=== PATIENT | female | born 1945 | race Caucasian/White ===

== ENCOUNTER → 2016-07-25 | Outpatient (CLI) | payer MEDICARE, OTHER ==
[2016-07-25 13:06] LABS: Basophils % (A) 0 %; CH 32.4; Eosinophils # (A) 0.2 k/uL (0-0.7); Eosinophils % (A) 2 %; HCT 39.9 % (34.0-46.0); HDW 2.91; HGB 13.1 gm/dL (11.4-16.0); Luc % (Auto) 3; Lymphocytes # (A) 1.7 k/uL (1.0-4.8); Lymphocytes % (A) 28 %; MCH 31.4 pg (25.0-35.0); MCHC 32.9 g/dL (31.0-37.0); MCV 95.6 fL (80.0-100.0); Mean Platelet Volume 7.1; Monocytes # (A) 0.3 k/uL (0-1.0); Monocytes % (A) 5 %; Neutrophils # (A) 3.7 k/uL (1.3-7.7); Neutrophils % (A) 61 %; RBC 4.18 m/uL (3.80-5.40); RDW 13.7 % (11.5-15.5); WBC 6.1 k/uL (3.8-10.6); WBC (Perox) 6.51
[2016-07-25 13:27] LABS: ALT 48 U/L (9-52); AST 29 U/L (14-36); Alkaline Phosphatase 152 U/L (38-126); Anion Gap 14 mmol/L; Blood Urea Nitrogen 22 mg/dL (7-17); Calcium 9.7 mg/dL (8.4-10.2); Carbon Dioxide 24 mmol/L (22-30); Chloride 103 mmol/L (98-107); Glucose 267 mg/dL (74-99); Non-African American GFR(MDRD) >60 (>60 ml/min/1.73 sqM); Potassium 3.9 mmol/L (3.5-5.1); Sodium 141 mmol/L (137-145); Total Bilirubin 0.5 mg/dL (0.2-1.3); Total Protein 7.7 g/dL (6.3-8.2)
[2016-07-25 19:07] LABS: Hemoglobin A1C 8.1 % (4.2-6.1)
== END | disposition home or self-care (01) ==
LOC: LABPAT 12:42
PROVIDERS: ATTEND Surgery
DX: Z01.812 Encounter for preprocedural laboratory examination (principal)
CPT/HCPCS: 80053; 83036; 85025

== ENCOUNTER 2016-08-01 05:48 | Inpatient (IN) | payer MEDICARE, OTHER ==
[~2016-08-01 05:48] MED LIST: ceFAZolin 2 GM in SODIUM CHLORIDE 0.9% 100 ML IVPB ONE
[2016-08-01] MEDS ORDERED: DEXAMETHASONE SOD PHOSPHATE 10 MG/ML 1 ML VIAL IV ONE (05:53)
[2016-08-01] MEDS ORDERED: ONDANSETRON 4 MG/2 ML VIAL IVP ONE (05:53)
[2016-08-01] MEDS ORDERED: LACTATED RINGERS 1,000 ML IV SCH (05:53)
[2016-08-01] MEDS ORDERED: LIDOCAINE 1% 20 ML VIAL (10MG/ML) FOR IV START INTRADERMA PRN (05:53)
[2016-08-01] MEDS ORDERED: SCOPOLAMINE 1.5MG/72HR PATCH TRANSDERM ONE (05:53)
[2016-08-01 06:46] LABS: Glucose,Whole Blood 173 mg/dL (75-99)
[2016-08-01] MEDS ORDERED: MIDAZOLAM 2 MG/2 ML VIAL IV ONE (06:59)
--- NOTE | 2016-08-01 08:03 | P.GSHP ---
History of Present Illness H&P Date: 08/01/16 Chief Complaint: Morbid obesity This a 70-year-old female who's had lifetime problems obesity. Patient recently had her LAP-BAND removed for gastric prolapse/dysphagia and GERD. She presents today for laparoscopic sleeve gastrectomy. Her BMI is 41. Patient reversed surgery including bleeding, infection. She is also aware the risk of gastric staple line disruption, scarring, bleeding. - Constitutional Constitutional: Reports as per HPI Past Medical History Past Medical History: Asthma, Diabetes Mellitus, GERD/Reflux, Hyperlipidemia, Hypertension, Liver Disease, Osteoarthritis (OA), Sleep Apnea/CPAP/BIPAP, Thyroid Disorder Additional Past Medical History / Comment(s): Hiatal Hernia. Hx. Hepatitis. Anemia. Hx FREQ UTI's, TAKES PROPHYL PO AB RX-no problems currently, USES CPAP. History of Any Multi-Drug Resistant Organisms: None Reported Past Surgical History: Back Surgery, Bariatric Surgery, Breast Surgery, Cholecystectomy, Hysterectomy, Orthopedic Surgery, Tonsillectomy, Tubal Ligation Additional Past Surgical History / Comment(s): Lap Band, 2007. Tylor carpal tunnel, breast biopsy, D&C's, uvula removed, trigger finger tylor middle fingers, rt cataract, left ankle surgery, EGD 04/06/16 Past Anesthesia/Blood Transfusion Reactions: Motion Sickness Past Psychological History: No Psychological Hx Reported Smoking Status: Former smoker Past Alcohol Use History: Rare Additional Past Alcohol Use History / Comment(s): quit smoking 1989, started 1969, smoked 1-1and1/2ppd Past Drug Use History: None Reported - Past Family History Father Family Medical History: Cancer Brother(s) Family Medical History: Cancer Medications and Allergies Home Medications Medication Instructions Recorded Confirmed Type Calcium Carbonate [Calcium] 600 mg PO BID 06/16/15 08/01/16 History Cholecalciferol [Vitamin D3] 1,000 unit PO DAILY 06/16/15 08/01/16 History Ferrous Sulfate [Feosol] 650 mg PO DAILY 06/16/15 08/01/16 History Glimepiride [Amaryl] 4 mg PO BID 06/16/15 08/01/16 History Indapamide [Lozol] 2.5 mg PO QAM 06/16/15 08/01/16 History Irbesartan [Avapro] 150 mg PO QAM 06/16/15 08/01/16 History Levothyroxine Sodium [Synthroid] 137 mcg PO QAM 06/16/15 08/01/16 History Magnesium Gluconate [Magonate] 250 mg PO DAILY 06/16/15 08/01/16 History Montelukast Sodium [Singulair] 10 mg PO HS 06/16/15 08/01/16 History Multivitamins, Thera [Theragran] 1 each PO DAILY 06/16/15 08/01/16 History Omeprazole [PriLOSEC] 20 mg PO HS 06/16/15 08/01/16 History Potassium Chloride [Klor-Con 10] 10 meq PO DAILY 06/16/15 08/01/16 History Sertraline [Zoloft] 50 mg PO QAM 06/16/15 08/01/16 History azaTHIOprine [Imuran] 50 mg PO DAILY 06/16/15 08/01/16 History metFORMIN HCL 1,000 mg PO BID 06/16/15 08/01/16 History metFORMIN HCL [Glucophage] 500 mg PO W/SUPPER 06/16/15 08/01/16 History Nitrofurantoin Macrocrystal 100 mg PO HS PRN 03/28/16 08/01/16 History [Macrodantin] Cyanocobalamin [Vitamin B-12] 1,000 mcg PO DAILY 05/03/16 08/01/16 History Krill/Om-3/Dha/Epa/Phospho/Ast 1 each PO DAILY 05/03/16 08/01/16 History [[place]-3 Krill Oil 300 mg Sfgl] Allergies Allergy/AdvReac Type Severity Reaction Status Date / Time Sulfa (Sulfonamide Allergy Rash/Hives Verified 08/01/16 06:20 Antibiotics) Surgical - Exam Vital Signs Temp Pulse Resp BP Pulse Ox 98.3 F 107 H 16 115/52 97 08/01/16 06:10 08/01/16 06:10 08/01/16 06:10 08/01/16 06:10 08/01/16 06:10 BMI is 41 - General well developed, no distress - Eyes PERRL - ENT normal pinna - Neck no masses - Respiratory normal expansion - Cardiovascular Rhythm: regular - Abdomen Abdomen: soft, non tender Results - Labs Abnormal Lab Results - Last 24 Hours (Table) 08/01/16 Range/Units 06:30 POC Glucose (mg/dL) 173 H (75-99) mg/dL Assessment and Plan Plan: Morbid obesity. We'll perform laparoscopic sleeve gastrectomy.
[2016-08-01] MEDS ORDERED: HEPARIN SODIUM,PORCINE 5,000 UNIT/ML 1 ML VIAL SQ ONE (08:07)
[2016-08-01] MEDS ORDERED: fentaNYL (PF) 50 MCG/ML 2 ML AMP ONE (08:09)
[2016-08-01] MEDS ORDERED: PROPOFOL 10 MG/ML 20 ML VIAL IV ONE (08:09)
[2016-08-01] MEDS ORDERED: NEOSTIGMINE 1 MG/ML 10 ML VIAL ONE (08:09)
[2016-08-01] MEDS ORDERED: LIDOCAINE 1% INJ 10MG/ML (20 ML MDV) ONE (08:09)
[2016-08-01] MEDS ORDERED: ePHEDrine 50 MG/ML 1 ML AMP ONE (08:09)
[2016-08-01] MEDS ORDERED: MIDAZOLAM 2 MG/2 ML VIAL ONE (08:09)
[2016-08-01] MEDS ORDERED: GLYCOPYRROLATE 0.2 MG/ML 2 ML VIAL ONE (08:09)
[2016-08-01] MEDS ORDERED: SUCCINYLCHOLINE CHLORIDE VIAL 200 MG/10 ML VIAL IV ONE (08:09)
[2016-08-01] MEDS ORDERED: ROCURONIUM BROMIDE 10 MG/ML 10 ML VIAL IV ONE (08:09)
[2016-08-01] MEDS ORDERED: ONDANSETRON 4 MG/2 ML VIAL ONE (08:09)
[2016-08-01] MEDS ORDERED: BUPIVACAIN-EPI 0.25%-1:200,000 30 ML VIAL SQ ONE (08:37)
[2016-08-01] MEDS ORDERED: METHYLENE BLUE 10 MG/ML 1 ML VIAL MISCELLANE ONE (08:37)
[2016-08-01] MEDS ORDERED: LACTATED RINGERS 1,000 ML IV ONE (09:52)
[2016-08-01] MEDS ORDERED: NALOXONE 0.4 MG/ML 1 ML VIAL IV PRN (10:04)
--- NOTE | 2016-08-01 10:04 | P.OP ---
Date of Procedure: 08/01/16 Preoperative Diagnosis: Morbid obesity Postoperative Diagnosis: Morbid obesity Procedure(s) Performed: Laparoscopic sleeve gastrectomy Anesthesia: MAC Surgeon: Santos Yancey Pathology: other (Stomach) Condition: stable Disposition: PACU Description of Procedure: The patient was placed on the operating room table in the supine position. She received general anesthesia and then was placed in dorsal lithotomy position. Her abdomen was prepped and draped in sterile fashion. The skin incision sites were anesthetized 1% local Xylocaine. And then the skin was incised with an 11 blade in the left lateral position. Using a blade less trocar under direct visualization the peritoneal cavity was entered. The abdomen was insufflated and then a 5 mm laparoscope was placed into the peritoneal cavity. A 5 mm trocar was placed in the right epigastric, and right lateral position. A 15 mm trocar was placed in the supra-umbilical position and another 5 mm trocar was placed in the left lateral position. The left lateral lobe of the liver was retracted. The stomach was visualized. The greater curvature of the stomach was then dissected using the Harmonic scissors. The dissection occurred approximately 5 cm from the pylorus to the level of the left anisha. There was no hiatal hernia seen. At this point a 40-Kinyarwanda bougie dilator was placed the oropharynx and passed into the esophagus and into the stomach by the POLICY VALUE CALCULATOR. The sleeve gastrectomy was performed by using the powered echelon stapler with a seam guard buttress material. Sequential firings of the stapler were performed. The gastric remnant was then brought out through the 15 mm trocar site. The dilator was withdrawn. And a orogastric tube was replaced into the stomach. The stomach was insufflated with 200 mL of methylene blue normal saline. There was no evidence of extravasation. The abdomen was irrigated there is no bleeding seen. The Juma-Rosana device was used to close the 15 mm trocar with 0 Vicryl. Skin was closed with interrupted 3-0 Monocryl sutures once the trochars withdrawn. Dermabond dressing was applied. Patient was sent to recovery in stable condition.
[2016-08-01] MEDS: HYDROmorphone 1 MG/ML 1 ML SYRINGE IVP PRN ×5 (10:35→16:57)
[2016-08-01 10:57] LABS: Glucose,Whole Blood 317 mg/dL (75-99)
[2016-08-01] MEDS ORDERED: INSULIN LISPRO (humaLOG) 300 UNIT/3 ML VIAL SQ ONE (10:57)
[2016-08-01 11:59] VITALS: BMI 40.4
[2016-08-01] MEDS: ALBUTEROL NEBULIZED 2.5 MG/3 ML INHALATION SCH ×3 (12:03→19:19)
[2016-08-01] MEDS: AMPICILLIN-SULBACTAM 3 GM in SODIUM CHLORIDE 0.9% 100 ML IVPB SCH ×2 (12:34→16:58)
[2016-08-01] MEDS: 0.9% NACL WITH KCL 20 MEQ/L 1,000 ML IV SCH ×2 (12:35→19:48)
--- NOTE | 2016-08-01 12:35 | P.CONS ---
History of Present Illness - Reason for Consult Consult date: 08/01/16 Medical management - Chief Complaint Gastric sleeve - History of Present Illness Patient seen and examined covering for Dr. Diogenes Spain. This is a 70-year-old female who presented to the hospital for gastric sleeve. The patient has morbid obesity and has a history of a lap band which was removed. The patient states she has a history of hypertension, dyslipidemia, obstructive sleep apnea. She is a former smoker and quit 30 years ago. She states she has no history of COPD or asthma or issues with her breathing. Her only complaints right now are a dry mouth and pain. Review of Systems All systems: negative Past Medical History Past Medical History: Diabetes Mellitus, GERD/Reflux, Hyperlipidemia, Hypertension, Liver Disease, Osteoarthritis (OA), Sleep Apnea/CPAP/BIPAP, Thyroid Disorder Additional Past Medical History / Comment(s): Hiatal Hernia. Hx. Hepatitis. Anemia. Hx FREQ UTI's, TAKES PROPHYL PO AB RX-no problems currently, USES CPAP. History of Any Multi-Drug Resistant Organisms: None Reported Past Surgical History: Back Surgery, Bariatric Surgery, Breast Surgery, Cholecystectomy, Hysterectomy, Orthopedic Surgery, Tonsillectomy, Tubal Ligation Additional Past Surgical History / Comment(s): Lap Band, 2007. Tylor carpal tunnel, breast biopsy, D&C's, uvula removed, trigger finger tylor middle fingers, rt cataract, left ankle surgery, EGD 04/06/16 Past Anesthesia/Blood Transfusion Reactions: Motion Sickness Past Psychological History: No Psychological Hx Reported Smoking Status: Former smoker Past Alcohol Use History: Rare Additional Past Alcohol Use History / Comment(s): quit smoking 1989, started 1969, smoked 1-1and1/2ppd Past Drug Use History: None Reported - Past Family History Father Family Medical History: Cancer Brother(s) Family Medical History: Cancer Medications and Allergies Home Medications Medication Instructions Recorded Confirmed Type Calcium Carbonate [Calcium] 600 mg PO BID 06/16/15 08/01/16 History Cholecalciferol [Vitamin D3] 1,000 unit PO DAILY 06/16/15 08/01/16 History Ferrous Sulfate [Feosol] 650 mg PO DAILY 06/16/15 08/01/16 History Glimepiride [Amaryl] 4 mg PO BID 06/16/15 08/01/16 History Indapamide [Lozol] 2.5 mg PO QAM 06/16/15 08/01/16 History Irbesartan [Avapro] 150 mg PO QAM 06/16/15 08/01/16 History Levothyroxine Sodium [Synthroid] 137 mcg PO QAM 06/16/15 08/01/16 History Magnesium Gluconate [Magonate] 250 mg PO DAILY 06/16/15 08/01/16 History Montelukast Sodium [Singulair] 10 mg PO HS 06/16/15 08/01/16 History Multivitamins, Thera [Theragran] 1 each PO DAILY 06/16/15 08/01/16 History Omeprazole [PriLOSEC] 20 mg PO HS 06/16/15 08/01/16 History Potassium Chloride [Klor-Con 10] 10 meq PO DAILY 06/16/15 08/01/16 History Sertraline [Zoloft] 50 mg PO QAM 06/16/15 08/01/16 History azaTHIOprine [Imuran] 50 mg PO DAILY 06/16/15 08/01/16 History metFORMIN HCL 1,000 mg PO BID 06/16/15 08/01/16 History metFORMIN HCL [Glucophage] 500 mg PO W/SUPPER 06/16/15 08/01/16 History Nitrofurantoin Macrocrystal 100 mg PO HS PRN 03/28/16 08/01/16 History [Macrodantin] Cyanocobalamin [Vitamin B-12] 1,000 mcg PO DAILY 05/03/16 08/01/16 History Krill/Om-3/Dha/Epa/Phospho/Ast 1 each PO DAILY 05/03/16 08/01/16 History [[place]-3 Krill Oil 300 mg Sfgl] Allergies Allergy/AdvReac Type Severity Reaction Status Date / Time Sulfa (Sulfonamide Allergy Rash/Hives Verified 08/01/16 06:20 Antibiotics) Physical Exam Osteopathic Statement: *. No significant issues noted on an osteopathic structural exam other than those noted in the History and Physical/Consult. Vitals: Vital Signs Temp Pulse Pulse Resp BP Pulse Ox 08/01/16 12:04 95 92 L 08/01/16 11:01 97 18 121/57 96 08/01/16 10:46 95 18 117/59 96 08/01/16 10:31 93 18 132/68 95 01/16/17 10:16 96 18 131/61 95 08/01/16 10:01 98.4 F 106 H 18 142/63 96 08/01/16 06:37 98.3 F 107 H 16 115/52 97 08/01/16 06:10 98.3 F 107 H 16 115/52 97 Intake and Output 07/31/16 08/01/16 08/01/16 22:59 06:59 14:59 Intake Total 300 1300 Output Total 40 Balance 300 1260 Intake: IV 300 1300 Output: Estimated Blood Loss 40 Other: Weight 103.6 kg Patient Weight 08/02/16 06:59 Weight 103.6 kg Gen.: Patient is alert and oriented 3, no acute distress, morbidly obese Cardiovascular: Regular rate and rhythm, S1/S2 Lungs: Diminished at the bases otherwise clear Abdomen: Soft, mildly diffusely tender to palpation, positive bowel sounds Extremities: No edema Results Labs: Abnormal Lab Results - Last 24 Hours (Table) 08/01/16 08/01/16 Range/Units 06:30 10:54 POC Glucose (mg/dL) 173 H 317 H (75-99) mg/dL Assessment and Plan Plan: Morbid obesity Diabetes mellitus type 2 Hypertension Dyslipidemia Obstructive sleep apnea utilizing CPAP Status post gastric sleeve O2 to maintain saturation greater than equal to 88% Patient to use her CPAP from home nightly and with naps Accu-Cheks every 6 hours with sliding scale while nothing by mouth Pain control Resume patient's home medications once cleared by surgery for oral intake Incentive spirometry and pulmonary hygiene As needed bronchodilators GI and DVT prophylaxis. Lovenox, will add Pepcid IV fluid hydration
[2016-08-01] MEDS: INSULIN LISPRO (humaLOG) 300 UNIT/3 ML VIAL SQ SCH ×2 (12:39→17:02)
[2016-08-01] MEDS ORDERED: ONDANSETRON 4 MG/2 ML VIAL IVP PRN (14:33)
[2016-08-01] MEDS: FAMOTIDINE 20 MG/2 ML VIAL IV SCH (14:53)
[2016-08-01 16:59] LABS: Glucose,Whole Blood 320 mg/dL (75-99)
[2016-08-01 20:01] LABS: Glucose,Whole Blood 297 mg/dL (75-99)
[2016-08-02] MEDS: INSULIN LISPRO (humaLOG) 300 UNIT/3 ML VIAL SQ SCH ×4 (00:25→18:12)
[2016-08-02 00:26] LABS: Glucose,Whole Blood 268 mg/dL (75-99)
[2016-08-02] MEDS: HYDROmorphone 1 MG/ML 1 ML SYRINGE IVP PRN ×6 (00:32→19:35)
[2016-08-02] MEDS: 0.9% NACL WITH KCL 20 MEQ/L 1,000 ML IV SCH ×4 (01:46→21:24)
[2016-08-02 06:00] LABS: Glucose,Whole Blood 188 mg/dL (75-99)
[2016-08-02 07:40] LABS: Basophils % (A) 0 %; CH 32.2; CHCM 34.1; Eosinophils % (A) 1 %; HCT 32.1 % (34.0-46.0); HDW 2.84; HGB 10.8 gm/dL (11.4-16.0); Luc # (Auto) 0.14; Luc % (Auto) 2; Lymphocytes # (A) 0.8 k/uL (1.0-4.8); Lymphocytes % (A) 12 %; MCHC 33.7 g/dL (31.0-37.0); MCV 94.8 fL (80.0-100.0); Monocytes # (A) 0.4 k/uL (0-1.0); Monocytes % (A) 5 %; Neutrophils # (A) 5.4 k/uL (1.3-7.7); Neutrophils % (A) 80 %; RBC 3.39 m/uL (3.80-5.40); RDW 13.7 % (11.5-15.5); WBC 6.7 k/uL (3.8-10.6); WBC (Perox) 7.05
[2016-08-02 08:02] LABS: Anion Gap 8 mmol/L; Blood Urea Nitrogen 18 mg/dL (7-17); Carbon Dioxide 26 mmol/L (22-30); Chloride 108 mmol/L (98-107); Magnesium 1.5 mg/dL (1.6-2.3); Non-African American GFR(MDRD) >60 (>60 ml/min/1.73 sqM); Phosphorous 3.2 mg/dL (2.5-4.5); Potassium 4.1 mmol/L (3.5-5.1); Sodium 142 mmol/L (137-145)
[2016-08-02] MEDS ORDERED: Magnesium Replacement Protocol 1 EACH MISC MISCELLANE PRN (08:35)
[2016-08-02] MEDS: MAGNESIUM SULFATE-D5W PMX 1 GM in DEXTROSE/WATER 1 100ML.BAG IVPB SCH ×2 (09:03→11:05)
[2016-08-02] MEDS: ALBUTEROL NEBULIZED 2.5 MG/3 ML INHALATION SCH ×4 (09:03→19:10)
[2016-08-02] MEDS: ENOXAPARIN 40 MG/0.4 ML SYRINGE SQ SCH ×2 (09:04→21:20)
[2016-08-02] MEDS: FAMOTIDINE 20 MG/2 ML VIAL IV SCH (09:04)
[2016-08-02 09:20] LABS: Hemoglobin A1C 8.2 % (4.2-6.1)
--- NOTE | 2016-08-02 09:33 | FL ---
EXAMINATION TYPE: FL UGI DATE OF EXAM: 08/02/2016 8:56 AM COMPARISON: NONE HISTORY: Gastric sleeve TECHNIQUE: A single/double contrast UGI study is performed. FINDINGS: No free air is under the diaphragms. Single contrast evaluation through the gastric sleeve is performed. There is moderate hesitancy passing through the gastroesophageal junction into the barbi shahriar sleeve. No extravasation is evident. The gastric sleeve appears open without persistent stenosis. Contrast extends into the duodenum. Note is made of a slight pouch within the proximal residual stom ach. IMPRESSION: 1. Normal post gastric sleeve upper GI.
[2016-08-02 11:38] LABS: Glucose,Whole Blood 176 mg/dL (75-99)
[2016-08-02 15:16] VITALS: RESP 16
--- NOTE | 2016-08-02 15:21 | P.DS ---
Providers Date of admission: 08/01/16 05:48 Expected date of discharge: 08/02/16 Attending physician: Santos Yancey Consults: 08/01/16 10:04 Consult Physician Routine Consulting Provider: Diogenes Spain Reason/Comments: Medical management Do you want consulting provider notified?: Yes Primary care physician: Stated None Hospital Course: Patient is a 70-year-old female with medical history significant for morbid obesity and LAP-BAND surgery, since removed for gastric prolapse, dysphasia and GERD. Patient presented to the hospital for elective laparoscopic sleeve gastrectomy on 08/01/[address] Yancey. Patient tolerated procedure well. GI series on 08/02/2016 with no evidence of extravasation or obstruction. Patient had an uneventful postoperative course. No complaints of dysphagia. Tolerating a clear liquid diet. Laparoscopic surgical incisions dry and intact, no erythema and drainage. Patient was deemed stable for discharge with follow-up in the outpatient setting. Discharge diagnoses: Morbid obesity status post laparoscopic gastric sleeve gastrectomy. BMI 40.5. The above impression and plan have been discussed and directed by Dr. Yancey. Melani ARANDA acting as scribe for Dr. Yancey. Pertinent Studies: Upper GI series Procedures: Laparoscopic sleeve gastrectomy Patient Condition at Discharge: Good Plan - Discharge Summary New Discharge Prescriptions: HYDROcodone/APAP 7.5-325MG [[place] 7.5-325] 1 tab PO Q6HR PRN #28 tab PRN Reason: Pain Omeprazole [PriLOSEC] 40 mg PO DAILY #30 capsule. Ondansetron Odt [Zofran ODT] 8 mg PO Q8HR #20 tab Sucralfate [Carafate] 1 gm PO ACHS #90 tablet Discharge Medication List Calcium Carbonate [Calcium] 600 mg PO BID 06/16/15 [History] Cholecalciferol [Vitamin D3] 1,000 unit PO DAILY 06/16/15 [History] Ferrous Sulfate [Iron (65 MG Elemental)] 650 mg PO DAILY 06/16/15 [History] Glimepiride [Amaryl] 4 mg PO BID 06/16/15 [History] Indapamide [Lozol] 2.5 mg PO QAM 06/16/15 [History] Irbesartan [Avapro] 150 mg PO QAM 06/16/15 [History] Levothyroxine Sodium [Synthroid] 137 mcg PO QAM 06/16/15 [History] Magnesium Gluconate [Magonate] 250 mg PO DAILY 06/16/15 [History] Montelukast Sodium [Singulair] 10 mg PO HS 06/16/15 [History] Multivitamins, Thera [Multivitamin] 1 tab PO DAILY 06/16/15 [History] Omeprazole [PriLOSEC] 20 mg PO HS 06/16/15 [History] Potassium Chloride [Klor-Con 10] 10 meq PO DAILY 06/16/15 [History] Sertraline [Zoloft] 50 mg PO QAM 06/16/15 [History] azaTHIOprine [Imuran] 50 mg PO DAILY 06/16/15 [History] metFORMIN HCL 1,000 mg PO BID 06/16/15 [History] metFORMIN HCL [Glucophage] 500 mg PO W/SUPPER 06/16/15 [History] Nitrofurantoin Macrocrystal [Macrodantin] 100 mg PO HS PRN 03/28/16 [History] Cyanocobalamin [Vitamin B-12] 1,000 mcg PO DAILY 05/03/16 [History] Krill/Om-3/Dha/Epa/Phospho/Ast [[place]-3 Krill Oil 300 mg Sfgl] 1 each PO DAILY 05/03/16 [History] Omeprazole [PriLOSEC] 40 mg PO DAILY #30 capsule. 08/01/16 [Rx] Ondansetron Odt [Zofran ODT] 8 mg PO Q8HR #20 tab 08/01/16 [Rx] Sucralfate [Carafate] 1 gm PO ACHS #90 tablet 08/01/16 [Rx] HYDROcodone/APAP 7.5-325MG [[place] 7.5-325] 1 tab PO Q6HR PRN #28 tab 08/02/16 [ Rx] Follow up Appointment(s)/Referral(s): Santos Yancey MD [STAFF PHYSICIAN] - 2 Weeks (In the bariatric center) Diogenes Spain MD [STAFF PHYSICIAN] - 1 Week Patient Instructions/Handouts: Laparoscopic Sleeve Gastrectomy (DC) Activity/Diet/Wound Care/Special Instructions: No heavy lifting, pushing, or pulling items greater than 10 pounds. Bariatric diet as previously directed Shower daily, no soaking in bath tubs, pools, or hot tubs. No driving while taking pain medication. Notify surgeon with any signs or symptoms of infection, increased pain, or not tolerating diet. Discharge Disposition: HOME SELF-CARE
[2016-08-02 16:40] LABS: Glucose,Whole Blood 198 mg/dL (75-99)
--- NOTE | 2016-08-02 16:59 | P.PN ---
Subjective Principal diagnosis: Status post gastric sleeve Patient seen and examined. Patient states that her breathing is okay. She states she has not yet used her incentive spirometer. She is encouraged to continue to use this. She did wear her CPAP overnight. She is complaining of some abdominal pain. Objective - Vital Signs Vital signs: Vital Signs Temp 98.2 F 08/02/16 15:00 Pulse 101 H 08/02/16 15:00 Resp 16 08/02/16 15:00 BP 146/92 08/02/16 15:00 Pulse Ox 94 L 08/02/16 15:00 Intake & Output 08/01/16 08/02/16 08/02/16 18:59 06:59 18:59 Intake Total 1300 1450 1180 Output Total 40 Balance 1260 1450 1180 Weight 103.6 kg 103.6 kg Intake: IV 1300 1450 1100 0.9% NaCl with KCl 20 Meq 1350 900 /l 1,000 ml @ 150 mls/hr IV .Q6H40M [facility] Rx#: [id number] Magnesium Sulfate-D5w Pmx 200 1 gm In Dextrose/Water 1 100ml.bag @ 100 mls/hr IVPB Q1H [facility] Rx#: [id number] ceFAZolin 2 gm In Sodium 100 Chloride 0.9% 100 ml @ 100 mls/hr IVPB ONCE ONE Rx#:[id number] Oral 80 Output: Estimated Blood Loss 40 Other: Voiding Method Toilet # Voids 1 3 - Exam Gen.: Patient is alert and oriented 3, no acute distress, morbidly obese Cardiovascular: Regular rate and rhythm, S1/S2 Lungs: Diminished at the bases otherwise clear Abdomen: Soft, mildly diffusely tender to palpation, positive bowel sounds Extremities: No edema - Labs CBC & Chem 7: 08/02/16 06:56 08/02/16 06:56 Labs: Abnormal Lab Results - Last 24 Hours (Table) 08/01/16 08/01/16 08/02/16 Range/Units 16:46 19:51 00:23 RBC (3.80-5.40) m/uL Hgb (11.4-16.0) gm/dL Hct (34.0-46.0) % Plt Count (150-450) k/uL Lymphocytes # (1.0-4.8) k/uL Chloride (98-107) mmol/L BUN (7-17) mg/dL POC Glucose (mg/dL) 320 H 297 H 268 H (75-99) mg/dL Hemoglobin A1c (4.2-6.1) % Magnesium (1.6-2.3) mg/dL 08/02/16 08/02/16 08/02/16 Range/Units 05:58 06:56 06:56 RBC 3.39 L (3.80-5.40) m/uL Hgb 10.8 L (11.4-16.0) gm/dL Hct 32.1 L (34.0-46.0) % Plt Count 115 L (150-450) k/uL Lymphocytes # 0.8 L (1.0-4.8) k/uL Chloride 108 H (98-107) mmol/L BUN 18 H (7-17) mg/dL POC Glucose (mg/dL) 188 H (75-99) mg/dL Hemoglobin A1c (4.2-6.1) % Magnesium 1.5 L (1.6-2.3) mg/dL 08/02/16 08/02/16 08/02/16 Range/Units 06:56 11:36 16:38 RBC (3.80-5.40) m/uL Hgb (11.4-16.0) gm/dL Hct (34.0-46.0) % Plt Count (150-450) k/uL Lymphocytes # (1.0-4.8) k/uL Chloride (98-107) mmol/L BUN (7-17) mg/dL POC Glucose (mg/dL) 176 H 198 H (75-99) mg/dL Hemoglobin A1c 8.2 H (4.2-6.1) % Magnesium (1.6-2.3) mg/dL Assessment and Plan Plan: Morbid obesity Diabetes mellitus type 2 Hypertension Dyslipidemia Obstructive sleep apnea utilizing CPAP Status post gastric sleeve O2 to maintain saturation greater than equal to 88% Patient to use her CPAP from home nightly and with naps Accu-Cheks every 6 hours with sliding scale while nothing by mouth Pain control Resume patient's home medications once cleared by surgery for oral intake Incentive spirometry and pulmonary hygiene As needed bronchodilators GI and DVT prophylaxis. Lovenox, will add Pepcid IV fluid hydration Okay to DC from medical standpoint
[2016-08-02] MEDS ORDERED: NITROFURANTOIN MACROCRYSTAL 50 MG CAP PO PRN (19:52)
[2016-08-02] MEDS ORDERED: MONTELUKAST 10 MG TAB PO SCH (21:00)
[2016-08-02] MEDS ORDERED: PANTOPRAZOLE 40 MG TABLET PO SCH (21:00)
[2016-08-02] MEDS ORDERED: INSULIN LISPRO (humaLOG) 300 UNIT/3 ML VIAL SQ SCH (21:14)
[2016-08-02] MEDS: GLIMEPIRIDE 4 MG TAB PO SCH (21:20)
[2016-08-02] MEDS: metFORMIN 500 MG TAB PO SCH (21:21)
[2016-08-02 21:26] LABS: Glucose,Whole Blood 194 mg/dL (75-99)
[2016-08-02] MEDS ORDERED: INSULIN LISPRO (humaLOG) 300 UNIT/3 ML VIAL SQ ONE (21:37)
[2016-08-03] MEDS: HYDROmorphone 1 MG/ML 1 ML SYRINGE IVP PRN ×3 (01:23→08:22)
[2016-08-03] MEDS ORDERED: LEVOTHYROXINE 137 MCG TAB PO SCH (06:30)
[2016-08-03 06:51] LABS: Glucose,Whole Blood 168 mg/dL (75-99)
[2016-08-03] MEDS: ALBUTEROL NEBULIZED 2.5 MG/3 ML INHALATION SCH ×2 (07:23→11:13)
[2016-08-03] MEDS: metFORMIN 500 MG TAB PO SCH (08:22)
[2016-08-03] MEDS: GLIMEPIRIDE 4 MG TAB PO SCH (08:23)
[2016-08-03] MEDS: ENOXAPARIN 40 MG/0.4 ML SYRINGE SQ SCH (08:24)
[2016-08-03] MEDS: FAMOTIDINE 20 MG/2 ML VIAL IV SCH (08:27)
[2016-08-03] MEDS ORDERED: azaTHIOprine 50 MG TAB PO SCH (09:00)
[2016-08-03] MEDS ORDERED: INDAPAMIDE 2.5 MG TAB PO SCH (09:00)
[2016-08-03] MEDS ORDERED: MAGNESIUM OXIDE 250 MG TAB PO SCH (09:00)
[2016-08-03] MEDS ORDERED: SERTRALINE 50 MG TAB PO SCH (09:00)
[2016-08-03] MEDS ORDERED: POTASSIUM CHLORIDE ER 10 MEQ TAB.ER.PRT PO SCH (09:00)
[2016-08-03] MEDS ORDERED: LOSARTAN 50 MG TAB PO SCH (09:00)
[2016-08-03] MEDS ORDERED: FERROUS SULFATE 325 MG TAB PO SCH (09:00)
[2016-08-03] MEDS ORDERED: HYDROcodone/APAP 7.5-325MG 1 EACH TAB PO PRN (09:01)
[2016-08-03 09:49] VITALS: BP 123/60; TEMP 99
[2016-08-03 11:16] VITALS: PULSE 92
[2016-08-03 11:39] LABS: Glucose,Whole Blood 195 mg/dL (75-99)
--- NOTE | 2016-08-03 11:51 | P.PN ---
Subjective Principal diagnosis: Status post gastric sleeve Patient seen and examined. Patient states that her breathing is at baseline. She denies any chest pain or shortness of breath. She is complaining of some abdominal pain and asking for pain medicines. She is hopeful to go home today. Objective - Vital Signs Vital signs: Vital Signs Temp 99.0 F 08/03/16 07:00 Pulse 92 08/03/16 11:26 Resp 16 08/03/16 08:00 BP 123/60 08/03/16 07:00 Pulse Ox 94 L 08/03/16 07:25 Intake & Output 08/02/16 08/03/16 08/03/16 18:59 06:59 18:59 Intake Total 1180 Balance 1180 Weight 103.6 kg Intake: IV 1100 0.9% NaCl with KCl 20 Meq 900 /l 1,000 ml @ 150 mls/hr IV .Q6H40M [facility] Rx#: [id number] Magnesium Sulfate-D5w Pmx 200 1 gm In Dextrose/Water 1 100ml.bag @ 100 mls/hr IVPB Q1H [facility] Rx#: [id number] Oral 80 Other: Voiding Method Toilet Toilet # Voids 1 - Exam Gen.: Patient is alert and oriented 3, no acute distress, morbidly obese Cardiovascular: Regular rate and rhythm, S1/S2 Lungs: Diminished at the bases otherwise clear Abdomen: Soft, mildly diffusely tender to palpation, positive bowel sounds Extremities: No edema - Labs CBC & Chem 7: 08/02/16 06:56 08/02/16 06:56 Labs: Abnormal Lab Results - Last 24 Hours (Table) 08/02/16 08/02/16 08/03/16 Range/Units 16:38 21:19 06:46 POC Glucose (mg/dL) 198 H 194 H 168 H (75-99) mg/dL 08/03/16 Range/Units 11:37 POC Glucose (mg/dL) 195 H (75-99) mg/dL Assessment and Plan Plan: Morbid obesity Diabetes mellitus type 2 Hypertension Dyslipidemia Obstructive sleep apnea utilizing CPAP Status post gastric sleeve O2 to maintain saturation greater than equal to 88% Patient to use her CPAP from home nightly and with naps Accu-Cheks every 6 hours with sliding scale while nothing by mouth Pain control Incentive spirometry and pulmonary hygiene As needed bronchodilators GI and DVT prophylaxis. Lovenox, will add Pepcid IV fluid hydration Okay to DC from medical standpoint
[2016-08-03] MEDS ORDERED: CYANOCOBALAMIN 500 MCG TAB PO SCH (12:00)
[2016-08-03] MEDS ORDERED: MULTIVITAMINS, THERA 1 EACH TAB PO SCH (12:00)
--- NOTE | 2016-08-03 12:21 | P.PN ---
Progress Note - Text Patient is postop day 2 from laparoscopic sleeve gastrectomy. Patient is doing well. Denies chills, fevers, nausea, vomiting, shortness of breath, chest pain , or dysphagia. Tolerating clear liquid diet. Passing flatus without bowel movement. Patient has been up ambulating. Incisional pain controlled with current pain regimen. Afebrile. Patient is eager to go home. On exam, patient's vital signs are stable. Abdomen soft with mild incisional tenderness. Incision sites clean, dry, intact. Status post laparoscopic sleeve gastrectomy. Patient will be discharged to home with follow-up appointments in the outpatient setting as directed. The above impression and plan have been discussed and directed by Dr. Yancey. Melani ARANDA acting as scribe for Dr. Yancey.
[2016-08-03] MEDS ORDERED: metFORMIN 500 MG TAB PO SCH (17:30)
== END 2016-08-03 12:46 | disposition home or self-care (01) | DRG 621 ==
LOC: 2ORWHC 05:48 → 3SUR 09:58
PROVIDERS: ADMIT Surgery; ATTEND Surgery
PROC: 0DB64Z3 Excision of Stomach, Percutaneous Endoscopic Approach, Vertical (ICD-10-PCS; principal; 2016-08-01 07:40)
DX: E66.01 Morbid (severe) obesity due to excess calories (principal); I10 Essential (primary) hypertension; E11.9 Type 2 diabetes mellitus without complications; Z68.41 Body mass index [BMI] 40.0-44.9, adult; E78.5 Hyperlipidemia, unspecified; G47.33 Obstructive sleep apnea (adult) (pediatric); J45.909 Unspecified asthma, uncomplicated; K21.9 Gastro-esophageal reflux disease without esophagitis; M19.90 Unspecified osteoarthritis, unspecified site; R47.02 Dysphasia; Z87.891 Personal history of nicotine dependence; Z79.84 Long term (current) use of oral hypoglycemic drugs; Z79.899 Other long term (current) drug therapy
CPT/HCPCS: 74240; 80051; 82310; 82565; 83036; 83735; 84100; 84520; 85025; 88307; 92950; 94640; 94760

== ENCOUNTER → 2016-08-22 | Outpatient (CLI) | payer MEDICARE, OTHER ==
[2016-08-22 12:58] VITALS: BP 142/76; PULSE 104; RESP 16; TEMP 98.1; BMI 38.9
--- NOTE | 2016-08-22 13:57 | P.HPBAR ---
Bariatric H&P - History & Physicial H&P Date: 08/22/16 History & Physicial: Visit/CC: Post Sleeve Patient initial contact: Initial weight: 124.738 kg Initial weight in pounds: 275.00 Height: 5 ft 3 in Initial BMI: 48.6 Last weight: Current weight: 99.592 kg Current weight in pounds: 219.00 Current BMI: 38.9 [place] body weight (based on NIH guidelines): 52.163 kg Excess body weight loss: 35.0% The patient is a 70 year-old F who presents for Bariatric Assessment. The patient's proxy 3 weeks status post sleeve gastrectomy. She is doing quite well. She lost approximately 12 pounds. Past Medical History Past Medical History: Diabetes Mellitus, GERD/Reflux, Hyperlipidemia, Hypertension, Liver Disease, Osteoarthritis (OA), Sleep Apnea/CPAP/BIPAP, Thyroid Disorder Additional Past Medical History / Comment(s): Hiatal Hernia. Hepatitis. Anemia. Hx FREQ UTI's, TAKES PROPHYL PO AB RX. USES CPAP. History of Any Multi-Drug Resistant Organisms: None Reported Past Surgical History: Back Surgery, Bariatric Surgery, Breast Surgery, Cholecystectomy, Hysterectomy, Orthopedic Surgery, Tonsillectomy, Tubal Ligation Additional Past Surgical History / Comment(s): Lap Band, 2007. Tylor carpal tunnel, breast biopsy, D&C's, uvula removed, trigger finger tylor middle fingers, rt cataract, left ankle surgery, EGD 04/06/16 Past Anesthesia/Blood Transfusion Reactions: Motion Sickness Past Psychological History: No Psychological Hx Reported Smoking Status: Former smoker Past Alcohol Use History: Rare Additional Past Alcohol Use History / Comment(s): quit smoking 1989, started 1969, smoked 1-1and1/2ppd Past Drug Use History: None Reported - Past Family History Father Family Medical History: Cancer Brother(s) Family Medical History: Cancer Surgical - Exam Vital Signs Temp Pulse Resp BP 98.1 F 104 H 16 142/76 08/22/16 12:56 08/22/16 12:56 08/22/16 12:56 08/22/16 12:56 - General well developed, no distress - Eyes PERRL - ENT normal pinna - Neck no masses - Respiratory normal expansion - Cardiovascular Rhythm: regular - Abdomen Abdomen: soft, non tender Bariatric Assessment & Plan Plan: Status post sleeve gastrectomy. Patient did well. She'll follow-up in one month. Bariatric Checklist Checklist: Plan: Checklist: EGD: 1. Hiatal hernia: 2. H. Pylori: HgbA1c: Vitamin D: Smoking: Former smoker Primary care physician referral: Dr. vega Psychiatry clearance: Cardiology clearance: Sleep study: Diet journal: VTE risk score: VTE risk level: Rehab needs at discharge:
== END | disposition home or self-care (01) ==
LOC: BARWHC3 12:26
PROVIDERS: ATTEND Surgery
DX: Z48.815 Encounter for surgical aftercare following surgery on the digestive system (principal); Z71.3 Dietary counseling and surveillance; E66.01 Morbid (severe) obesity due to excess calories; Z68.38 Body mass index [BMI] 38.0-38.9, adult; Z98.84 Bariatric surgery status; G47.33 Obstructive sleep apnea (adult) (pediatric); Z99.89 Dependence on other enabling machines and devices; Z87.891 Personal history of nicotine dependence
CPT/HCPCS: 97803; G0463; 99211

== ENCOUNTER → 2016-09-26 | Outpatient (CLI) | payer MEDICARE, OTHER ==
[2016-09-26 13:29] VITALS: BP 133/73; PULSE 103; RESP 16; TEMP 97.9; BMI 38.8
--- NOTE | 2016-09-26 16:37 | P.HPBAR ---
Bariatric H&P - History & Physicial H&P Date: 09/26/16 History & Physicial: Visit/CC: sleeve follow-up Patient initial contact: Initial weight: 124.738 kg Initial weight in pounds: 275.00 Height: 5 ft 3 in Initial BMI: 48.6 Last weight: Current weight: 99.422 kg Current weight in pounds: 219.00 Current BMI: 38.8 [place] body weight (based on NIH guidelines): 52.163 kg Excess body weight loss: 35.0% The patient is a 70 year-old F who presents for Bariatric Assessment. Patient presents today for sleeve gastric follow-up. Her weight has been stable. She' s had some mild GERD symptoms. Review of Systems Constitutional: Reports as per HPI Past Medical History Past Medical History: Diabetes Mellitus, GERD/Reflux, Hyperlipidemia, Hypertension, Liver Disease, Osteoarthritis (OA), Sleep Apnea/CPAP/BIPAP, Thyroid Disorder Additional Past Medical History / Comment(s): Hiatal Hernia. Hepatitis. Anemia. Hx FREQ UTI's, TAKES PROPHYL PO AB RX. USES CPAP. History of Any Multi-Drug Resistant Organisms: None Reported Past Surgical History: Back Surgery, Bariatric Surgery, Breast Surgery, Cholecystectomy, Hysterectomy, Orthopedic Surgery, Tonsillectomy, Tubal Ligation Additional Past Surgical History / Comment(s): Lap Band, 2007. Tylor carpal tunnel, breast biopsy, D&C's, uvula removed, trigger finger tylor middle fingers, rt cataract, left ankle surgery, EGD 04/06/16 Past Anesthesia/Blood Transfusion Reactions: Motion Sickness Past Psychological History: No Psychological Hx Reported Smoking Status: Former smoker Past Alcohol Use History: Rare Additional Past Alcohol Use History / Comment(s): quit smoking 1989, started 1969, smoked 1-1and1/2ppd Past Drug Use History: None Reported - Past Family History Father Family Medical History: Cancer Brother(s) Family Medical History: Cancer Surgical - Exam Vital Signs Temp Pulse Resp BP 97.9 F 103 H 16 133/73 09/26/16 13:27 09/26/16 13:27 09/26/16 13:27 09/26/16 13:27 - General well developed, no distress - Abdomen Abdomen: soft, non tender Bariatric Assessment & Plan Plan: Status post sleeve yesterday. Patient will meet with dietitian to help choose lower calorie options. Her GERD symptoms are minimal and was treated with omeprazole. She'll follow-up in one month. Bariatric Checklist Checklist: Plan: Checklist: EGD: 1. Hiatal hernia: 2. H. Pylori: HgbA1c: Vitamin D: Smoking: Former smoker Primary care physician referral: Dr. vega Psychiatry clearance: Cardiology clearance: Sleep study: Diet journal: VTE risk score: VTE risk level: Rehab needs at discharge:
== END | disposition home or self-care (01) ==
LOC: BARWHC3 13:00
PROVIDERS: ATTEND Surgery
DX: Z48.815 Encounter for surgical aftercare following surgery on the digestive system (principal); Z71.3 Dietary counseling and surveillance; E66.01 Morbid (severe) obesity due to excess calories; Z68.35 Body mass index [BMI] 35.0-35.9, adult; Z98.84 Bariatric surgery status; K21.9 Gastro-esophageal reflux disease without esophagitis; G47.30 Sleep apnea, unspecified; Z99.89 Dependence on other enabling machines and devices; Z87.891 Personal history of nicotine dependence
CPT/HCPCS: 97803; G0463; 99211

== ENCOUNTER → 2016-11-21 | Outpatient (CLI) | payer MEDICARE, OTHER ==
[2016-11-21 13:18] VITALS: BP 114/74; PULSE 89; TEMP 98.4; BMI 33.2
[2016-11-21 14:38] LABS: ALT 29 U/L (9-52); AST 25 U/L (14-36); Alkaline Phosphatase 138 U/L (38-126); Anion Gap 13 mmol/L; Blood Urea Nitrogen 24 mg/dL (7-17); Calcium 9.8 mg/dL (8.4-10.2); Carbon Dioxide 23 mmol/L (22-30); Chloride 105 mmol/L (98-107); Glucose 155 mg/dL (74-99); Non-African American GFR(MDRD) 55 (>60 ml/min/1.73 sqM); Potassium 4.2 mmol/L (3.5-5.1); Sodium 141 mmol/L (137-145); Total Bilirubin 0.7 mg/dL (0.2-1.3); Total Protein 7.4 g/dL (6.3-8.2)
[2016-11-21 14:50] LABS: Hemoglobin A1C 7.6 % (4.2-6.1)
[2016-11-21 15:32] LABS: Vitamin B12 >1000 pg/mL
--- NOTE | 2016-11-21 16:55 | P.HPBAR ---
Bariatric H&P - History & Physicial H&P Date: 11/21/16 History & Physicial: Visit/CC: three month follow up visit Patient initial contact: Initial weight: 124.738 kg Initial weight in pounds: 275.00 Height: 5 ft 8 in Initial BMI: 41.8 Last weight: Current weight: 99.019 kg Current weight in pounds: 218.30 Current BMI: 33.2 [place] body weight (based on NIH guidelines): 63.503 kg Excess body weight loss: 42.0% The patient is a 70 year-old F who presents for Bariatric Assessment. Patient presents today for sleeve follow-up. She is doing quite well. She's had some GERD symptoms. Past Medical History Past Medical History: Diabetes Mellitus, GERD/Reflux, Hyperlipidemia, Hypertension, Liver Disease, Osteoarthritis (OA), Sleep Apnea/CPAP/BIPAP, Thyroid Disorder Additional Past Medical History / Comment(s): Hiatal Hernia. Hepatitis. Anemia. Hx FREQ UTI's, TAKES PROPHYL PO AB RX. USES CPAP. History of Any Multi-Drug Resistant Organisms: None Reported Past Surgical History: Back Surgery, Bariatric Surgery, Breast Surgery, Cholecystectomy, Hysterectomy, Orthopedic Surgery, Tonsillectomy, Tubal Ligation Additional Past Surgical History / Comment(s): Lap Band, 2007. Tylor carpal tunnel, breast biopsy, D&C's, uvula removed, trigger finger tylor middle fingers, rt cataract, left ankle surgery, EGD 04/06/16 Past Anesthesia/Blood Transfusion Reactions: Motion Sickness Past Psychological History: No Psychological Hx Reported Smoking Status: Former smoker Past Alcohol Use History: Rare Additional Past Alcohol Use History / Comment(s): quit smoking 1989, started 1969, smoked 1-1and1/2ppd Past Drug Use History: None Reported - Past Family History Father Family Medical History: Cancer Brother(s) Family Medical History: Cancer Surgical - Exam Vital Signs Temp Pulse BP 98.4 F 89 114/74 11/21/16 13:14 11/21/16 13:14 11/21/16 13:14 - General well developed, no distress - Eyes PERRL - ENT normal pinna, normal mucosa - Neck no masses - Respiratory normal expansion - Cardiovascular Rhythm: regular - Abdomen Abdomen: soft, non tender Results - Labs 11/21/16 13:46 Abnormal Lab Results - Last 24 Hours (Table) 11/21/16 11/21/16 Range/Units 13:46 13:46 BUN 24 H (7-17) mg/dL Glucose 155 H (74-99) mg/dL Hemoglobin A1c 7.6 H (4.2-6.1) % Alkaline Phosphatase 138 H (38-126) U/L Diabetes panel 11/21/16 11/21/16 Range/Units 13:46 13:46 Sodium 141 (137-145) mmol/L Potassium 4.2 (3.5-5.1) mmol/L Chloride 105 (98-107) mmol/L Carbon Dioxide 23 (22-30) mmol/L BUN 24 H (7-17) mg/dL Creatinine 1.00 (0.52-1.04) mg/dL Glucose 155 H (74-99) mg/dL Hemoglobin A1c 7.6 H (4.2-6.1) % Calcium 9.8 (8.4-10.2) mg/dL AST 25 (14-36) U/L ALT 29 (9-52) U/L Alkaline Phosphatase 138 H (38-126) U/L Total Protein 7.4 (6.3-8.2) g/dL Albumin 4.3 (3.5-5.0) g/dL Thyroid panel 11/21/16 Range/Units 13:46 TSH 0.732 (0.465-4.680) mIU/L Calcium panel 11/21/16 Range/Units 13:46 Calcium 9.8 (8.4-10.2) mg/dL Albumin 4.3 (3.5-5.0) g/dL Pituitary panel 11/21/16 Range/Units 13:46 Sodium 141 (137-145) mmol/L Potassium 4.2 (3.5-5.1) mmol/L Chloride 105 (98-107) mmol/L Carbon Dioxide 23 (22-30) mmol/L BUN 24 H (7-17) mg/dL Creatinine 1.00 (0.52-1.04) mg/dL Glucose 155 H (74-99) mg/dL Calcium 9.8 (8.4-10.2) mg/dL TSH 0.732 (0.465-4.680) mIU/L Adrenal panel 11/21/16 Range/Units 13:46 Sodium 141 (137-145) mmol/L Potassium 4.2 (3.5-5.1) mmol/L Chloride 105 (98-107) mmol/L Carbon Dioxide 23 (22-30) mmol/L BUN 24 H (7-17) mg/dL Creatinine 1.00 (0.52-1.04) mg/dL Glucose 155 H (74-99) mg/dL Calcium 9.8 (8.4-10.2) mg/dL Total Bilirubin 0.7 (0.2-1.3) mg/dL AST 25 (14-36) U/L ALT 29 (9-52) U/L Alkaline Phosphatase 138 H (38-126) U/L Total Protein 7.4 (6.3-8.2) g/dL Albumin 4.3 (3.5-5.0) g/dL Bariatric Assessment & Plan Plan: Status post sleeve yesterday. Patient is doing quite well. Her GERD symptoms we monitor, she is currently on Prilosec.. She will follow-up in one month. Bariatric Checklist Checklist: Plan: Checklist: EGD: 1. Hiatal hernia: 2. H. Pylori: HgbA1c: Vitamin D: Smoking: Former smoker Primary care physician referral: Dr. vega Psychiatry clearance: Cardiology clearance: Sleep study: Diet journal: VTE risk score: VTE risk level: Rehab needs at discharge:
== END | disposition home or self-care (01) ==
LOC: BARWHC3 12:39
PROVIDERS: ATTEND Surgery
DX: K21.9 Gastro-esophageal reflux disease without esophagitis (principal); E66.01 Morbid (severe) obesity due to excess calories; Z87.891 Personal history of nicotine dependence; Z98.84 Bariatric surgery status
CPT/HCPCS: 80053; 82607; 83036; 84443; 82306; 97803; G0463; 99211

== ENCOUNTER → 2016-12-19 | Outpatient (CLI) | payer MEDICARE, OTHER ==
[2016-12-19 13:45] VITALS: BP 118/63; PULSE 125; RESP 16; TEMP 98.4; BMI 38.2
--- NOTE | 2016-12-19 14:01 | P.HPBAR ---
Bariatric H&P - History & Physicial H&P Date: 12/19/16 History & Physicial: Visit/CC: sleeve fu Patient initial contact: Initial weight: 124.738 kg Initial weight in pounds: 275.00 Height: 5 ft 3 in Initial BMI: 48.6 Last weight: Current weight: 97.778 kg Current weight in pounds: 215.00 Current BMI: 38.2 [place] body weight (based on NIH guidelines): 52.163 kg Excess body weight loss: 37.5% The patient is a 71 year-old F who presents for Bariatric Assessment. Patient presents today for sleeve gastrectomy follow-up. She states that she just a large gold crown and has some nausea. She thinks she may have too much banana pudding. Her GERD symptoms are minimal. Past Medical History Past Medical History: Diabetes Mellitus, GERD/Reflux, Hyperlipidemia, Hypertension, Liver Disease, Osteoarthritis (OA), Sleep Apnea/CPAP/BIPAP, Thyroid Disorder Additional Past Medical History / Comment(s): Hiatal Hernia. Hepatitis. Anemia. Hx FREQ UTI's, TAKES PROPHYL PO AB RX. USES CPAP. History of Any Multi-Drug Resistant Organisms: None Reported Past Surgical History: Back Surgery, Bariatric Surgery, Breast Surgery, Cholecystectomy, Hysterectomy, Orthopedic Surgery, Tonsillectomy, Tubal Ligation Additional Past Surgical History / Comment(s): Lap Band, 2007. Tylor carpal tunnel, breast biopsy, D&C's, uvula removed, trigger finger tylor middle fingers, rt cataract, left ankle surgery, EGD 04/06/16 Past Anesthesia/Blood Transfusion Reactions: Motion Sickness Past Psychological History: No Psychological Hx Reported Smoking Status: Former smoker Past Alcohol Use History: Rare Additional Past Alcohol Use History / Comment(s): quit smoking 1989, started 1969, smoked 1-1and1/2ppd Past Drug Use History: None Reported - Past Family History Father Family Medical History: Cancer Brother(s) Family Medical History: Cancer Surgical - Exam Vital Signs Temp Pulse Resp BP 98.4 F 125 H 16 118/63 12/19/16 13:44 12/19/16 13:44 12/19/16 13:44 12/19/16 13:44 - General well developed, no distress - Eyes PERRL - ENT normal pinna - Neck no masses - Respiratory normal expansion - Cardiovascular Rhythm: regular - Abdomen Abdomen: soft, non tender Bariatric Assessment & Plan Plan: Status post sleeve yesterday. Patient is doing well. Her GERD symptoms are minimal we observed. I discussed with patient that [employer] may be the worst choice for lunch. Bariatric Checklist Checklist: Plan: Checklist: EGD: 1. Hiatal hernia: 2. H. Pylori: HgbA1c: Vitamin D: Smoking: Former smoker Primary care physician referral: Dr. vega Psychiatry clearance: Cardiology clearance: Sleep study: Diet journal: VTE risk score: VTE risk level: Rehab needs at discharge:
== END | disposition home or self-care (01) ==
LOC: BARWHC3 13:04
PROVIDERS: ATTEND Surgery
DX: Z09 Encounter for follow-up examination after completed treatment for conditions other than malignant neoplasm (principal); E11.9 Type 2 diabetes mellitus without complications; E78.5 Hyperlipidemia, unspecified; I10 Essential (primary) hypertension; Z98.84 Bariatric surgery status; Z87.891 Personal history of nicotine dependence
CPT/HCPCS: 99211

== ENCOUNTER → 2017-02-27 | Outpatient (CLI) | payer MEDICARE, OTHER ==
[2017-02-27 14:14] VITALS: BP 165/82; PULSE 86; RESP 16; TEMP 98.4; BMI 38.8
== END | disposition home or self-care (01) ==
LOC: BARWHC3 12:55
PROVIDERS: ATTEND Surgery
DX: E66.01 Morbid (severe) obesity due to excess calories (principal); Z71.3 Dietary counseling and surveillance; Z68.38 Body mass index [BMI] 38.0-38.9, adult
CPT/HCPCS: 99211

== ENCOUNTER → 2017-03-27 | Outpatient (CLI) | payer MEDICARE, OTHER ==
[2017-03-27 13:53] VITALS: BP 117/68; PULSE 92; TEMP 98; BMI 38.5
--- NOTE | 2017-03-27 14:22 | P.HPBAR ---
Bariatric H&P - History & Physicial H&P Date: 03/27/17 History & Physicial: Visit/CC: follow up visit Patient initial contact: Initial weight: 124.738 kg Initial weight in pounds: 275.00 Height: 5 ft 3.5 in Initial BMI: 47.9 Last weight: 219 Current weight: 100.244 kg Current weight in pounds: 221.00 Current BMI: 38.5 [place] body weight (based on NIH guidelines): 53.297 kg Excess body weight loss: 34.2% The patient is a 71 year-old F who presents for Bariatric Assessment. The patient presents today for lab band follow up. Patient is to having poor choices food. She has had a lot of carbohydrates. She states she ate some sweets so. Past Medical History Past Medical History: Diabetes Mellitus, GERD/Reflux, Hyperlipidemia, Hypertension, Liver Disease, Osteoarthritis (OA), Sleep Apnea/CPAP/BIPAP, Thyroid Disorder Additional Past Medical History / Comment(s): Hiatal Hernia. Hepatitis. Anemia. Hx FREQ UTI's, TAKES PROPHYL PO AB RX. USES CPAP. History of Any Multi-Drug Resistant Organisms: None Reported Past Surgical History: Back Surgery, Bariatric Surgery, Breast Surgery, Cholecystectomy, Hysterectomy, Orthopedic Surgery, Tonsillectomy, Tubal Ligation Additional Past Surgical History / Comment(s): Lap Band, 2007. Tylor carpal tunnel, breast biopsy, D&C's, uvula removed, trigger finger tylor middle fingers, rt cataract, left ankle surgery, EGD 04/06/16 Past Anesthesia/Blood Transfusion Reactions: Motion Sickness Past Psychological History: No Psychological Hx Reported Smoking Status: Former smoker Past Alcohol Use History: Rare Additional Past Alcohol Use History / Comment(s): quit smoking 1989, started 1969, smoked 1-1and1/2ppd Past Drug Use History: None Reported - Past Family History Father Family Medical History: Cancer Brother(s) Family Medical History: Cancer Surgical - Exam Vital Signs Temp Pulse BP 98.0 F 92 117/68 03/27/17 13:50 03/27/17 13:50 03/27/17 13:50 - General well developed, no distress - Eyes PERRL - ENT normal pinna - Neck no masses - Respiratory normal expansion - Abdomen Abdomen: soft, non tender Bariatric Assessment & Plan Plan: The patient is struggling with weight loss. She had some counseling regarding food choices. She will increase her activity. Her GERD symptoms are minimal and will be observed. She'll follow-up in one month Bariatric Checklist Checklist: Plan: Checklist: EGD: 1. Hiatal hernia: 2. H. Pylori: HgbA1c: Vitamin D: Smoking: Former smoker Primary care physician referral: Dr. vega Psychiatry clearance: Cardiology clearance: Sleep study: Diet journal: VTE risk score: VTE risk level: Rehab needs at discharge:
[2017-03-27 17:32] VITALS: RESP 16
== END ==
LOC: BARWHC3 12:49
PROVIDERS: ATTEND Surgery
DX: Z48.815 Encounter for surgical aftercare following surgery on the digestive system (principal); Z98.84 Bariatric surgery status; F17.200 Nicotine dependence, unspecified, uncomplicated; K21.9 Gastro-esophageal reflux disease without esophagitis
CPT/HCPCS: 99211

== ENCOUNTER → 2017-10-30 | Outpatient (CLI) | payer MEDICARE, OTHER ==
[2017-10-30 13:30] VITALS: BP 137/78; PULSE 106; TEMP 98.5
[2017-10-30 14:26] LABS: HGB 12.9 gm/dL (11.4-16.0); MCH 31.2 pg (25.0-35.0); MCHC 34.9 g/dL (31.0-37.0); MCV 89.3 fL (80.0-100.0); Mean Platelet Volume 7.4; Platelet Count 177 k/uL (150-450); RBC 4.15 m/uL (3.80-5.40); RDW 13.1 % (11.5-15.5); WBC 6.6 k/uL (3.8-10.6)
[2017-10-30 14:37] LABS: Albumin 4.3 g/dL (3.5-5.0); Calcium 9.9 mg/dL (8.4-10.2); Potassium 3.7 mmol/L (3.5-5.1); Total Bilirubin 0.5 mg/dL (0.2-1.3); Total Protein 7.6 g/dL (6.3-8.2)
--- NOTE | 2017-10-30 16:22 | P.HPBAR ---
Bariatric H&P - History & Physicial H&P Date: 10/30/17 History & Physicial: Visit/CC: one year follow up Patient initial contact: Initial weight: 124.738 kg Initial weight in pounds: 275.00 Height: 5 ft 3 in Initial BMI: 48.6 Last weight: 221 Current weight: Current weight in pounds: 226 Current BMI: [place] body weight (based on NIH guidelines): 52.163 kg Excess body weight loss: The patient is a 71 year-old F who presents for Bariatric Assessment. The patient presents today for sleeve gastrectomy follow-up. The patient presents for follow-up. She has complaints of GERD. She is wishing to undergo panniculectomy. Past Medical History Past Medical History: Diabetes Mellitus, GERD/Reflux, Hyperlipidemia, Hypertension, Liver Disease, Osteoarthritis (OA), Sleep Apnea/CPAP/BIPAP, Thyroid Disorder Additional Past Medical History / Comment(s): Hiatal Hernia. Hepatitis. Anemia. Hx FREQ UTI's, TAKES PROPHYL PO AB RX. USES CPAP. History of Any Multi-Drug Resistant Organisms: None Reported Past Surgical History: Back Surgery, Bariatric Surgery, Breast Surgery, Cholecystectomy, Hysterectomy, Orthopedic Surgery, Tonsillectomy, Tubal Ligation Additional Past Surgical History / Comment(s): Lap Band, 2007. Tylor carpal tunnel, breast biopsy, D&C's, uvula removed, trigger finger tylor middle fingers, rt cataract, left ankle surgery, EGD 04/06/16 Past Anesthesia/Blood Transfusion Reactions: Motion Sickness Past Psychological History: No Psychological Hx Reported Smoking Status: Former smoker Past Alcohol Use History: Rare Additional Past Alcohol Use History / Comment(s): quit smoking 1989, started 1969, smoked 1-1and1/2ppd Past Drug Use History: None Reported - Past Family History Father Family Medical History: Cancer Brother(s) Family Medical History: Cancer Surgical - Exam Vital Signs Temp Pulse BP 98.5 F 106 H 137/78 10/30/17 13:21 10/30/17 13:21 10/30/17 13:21 - General well developed, no distress - Eyes PERRL - ENT normal pinna - Neck no masses - Respiratory normal expansion - Cardiovascular Rhythm: regular - Abdomen Is a well-formed panniculus., Patient is evidence of chronic skin infections. Abdomen: soft, non tender Results - Labs 10/30/17 13:52 10/30/17 13:52 Abnormal Lab Results - Last 24 Hours (Table) 10/30/17 Range/Units 13:52 BUN 23 H (7-17) mg/dL Glucose 190 H (74-99) mg/dL Alkaline Phosphatase 164 H (38-126) U/L Diabetes panel 10/30/17 Range/Units 13:52 Sodium 142 (137-145) mmol/L Potassium 3.7 (3.5-5.1) mmol/L Chloride 102 (98-107) mmol/L Carbon Dioxide 25 (22-30) mmol/L BUN 23 H (7-17) mg/dL Creatinine 1.00 (0.52-1.04) mg/dL Glucose 190 H (74-99) mg/dL Calcium 9.9 (8.4-10.2) mg/dL AST 25 (14-36) U/L ALT 28 (9-52) U/L Alkaline Phosphatase 164 H (38-126) U/L Total Protein 7.6 (6.3-8.2) g/dL Albumin 4.3 (3.5-5.0) g/dL Thyroid panel 10/30/17 Range/Units 13:52 TSH 0.833 (0.465-4.680) mIU/L Calcium panel 10/30/17 Range/Units 13:52 Calcium 9.9 (8.4-10.2) mg/dL Albumin 4.3 (3.5-5.0) g/dL Pituitary panel 10/30/17 Range/Units 13:52 Sodium 142 (137-145) mmol/L Potassium 3.7 (3.5-5.1) mmol/L Chloride 102 (98-107) mmol/L Carbon Dioxide 25 (22-30) mmol/L BUN 23 H (7-17) mg/dL Creatinine 1.00 (0.52-1.04) mg/dL Glucose 190 H (74-99) mg/dL Calcium 9.9 (8.4-10.2) mg/dL TSH 0.833 (0.465-4.680) mIU/L Adrenal panel 10/30/17 Range/Units 13:52 Sodium 142 (137-145) mmol/L Potassium 3.7 (3.5-5.1) mmol/L Chloride 102 (98-107) mmol/L Carbon Dioxide 25 (22-30) mmol/L BUN 23 H (7-17) mg/dL Creatinine 1.00 (0.52-1.04) mg/dL Glucose 190 H (74-99) mg/dL Calcium 9.9 (8.4-10.2) mg/dL Total Bilirubin 0.5 (0.2-1.3) mg/dL AST 25 (14-36) U/L ALT 28 (9-52) U/L Alkaline Phosphatase 164 H (38-126) U/L Total Protein 7.6 (6.3-8.2) g/dL Albumin 4.3 (3.5-5.0) g/dL Bariatric Assessment & Plan Plan: Status post sleeve gastrectomy. Patient's weight loss has been stable. She'll be scheduled for panniculectomy once she has obtained insurance authorization. I went over the risks and benefits of procedure including wound infection, seroma, hematoma. Bariatric Checklist Checklist: Plan: Checklist: EGD: 1. Hiatal hernia: 2. H. Pylori: HgbA1c: Vitamin D: Smoking: Former smoker Primary care physician referral: Dr. vega Psychiatry clearance: Cardiology clearance: Sleep study: Diet journal: VTE risk score: VTE risk level: Rehab needs at discharge:
[2017-10-30 21:13] LABS: Hemoglobin A1C 7.8 % (4.0-6.0)
== END ==
LOC: BARWHC3 12:53
PROVIDERS: ATTEND Surgery
DX: Z48.815 Encounter for surgical aftercare following surgery on the digestive system (principal); E44.0 Moderate protein-calorie malnutrition; E55.9 Vitamin D deficiency, unspecified; E89.1 Postprocedural hypoinsulinemia; E66.01 Morbid (severe) obesity due to excess calories; Z87.891 Personal history of nicotine dependence; Z98.84 Bariatric surgery status; Z68.41 Body mass index [BMI] 40.0-44.9, adult
CPT/HCPCS: 80053; 84443; 85027; 82306; 83036; G0463; 99211

== ENCOUNTER → 2017-12-04 | Outpatient (CLI) | payer MEDICARE, OTHER | END | disposition home or self-care (01) | LOC: BARWHC3 12:54 | PROVIDERS: ATTEND Surgery | DX: E66.01 Morbid (severe) obesity due to excess calories (principal); Z53.9 Procedure and treatment not carried out, unspecified reason ==